=== PATIENT | male | born 1985 | race Caucasian/White ===

== ENCOUNTER 2025-04-13 15:34 | Emergency (ER) | payer OTHER ==
[~2025-04-13] VITALS: Ht 170.2 cm; Wt 81.0 kg
[2025-04-13 15:43] VITALS: O2SAT 99
[2025-04-13] MEDS ORDERED: ACET-2708 MT (19:02)
[2025-04-13] MEDS ORDERED: NAPR-679 MT (19:02)
[2025-04-13] MEDS: ACETAMINOPHEN 325MG TABLET PO ONE (19:13)
[2025-04-13] MEDS: IBUPROFEN 400MG TABLET PO ONE (19:13)
[2025-04-13 19:54] VITALS: BP 121/83; PULSE 75; RESP 18; TEMP 37.3; O2SAT 99
== END 2025-04-13 21:57 | disposition home or self-care (01) ==
LOC: ER 15:34
DX: S80.01XA Contusion of right knee, initial encounter (principal); S80.02XA Contusion of left knee, initial encounter; S60.222A Contusion of left hand, initial encounter; Z79.1 Long term (current) use of non-steroidal anti-inflammatories (NSAID); Z79.899 Other long term (current) drug therapy; V43.52XA Car driver injured in collision with other type car in traffic accident, initial encounter; Y93.89 Activity, other specified; Y92.89 Other specified places as the place of occurrence of the external cause; Y99.8 Other external cause status
CPT/HCPCS: 73110; 73130; 73560; 99284